=== PATIENT | male | born 1965 | race Caucasian/White ===

== ENCOUNTER 2021-11-20 19:02 | Emergency (ER) | payer MEDICARE, MEDICAID, SELFPAY ==
[2021-11-20 19:05] VITALS: BP 153/85; PULSE 93; RESP 18; TEMP 36.6; O2SAT 93; BMI 31.4
[2021-11-20] MEDS: MethylPREDNISolone 125 MG/2 ML Vial IV (19:16)
[2021-11-20] MEDS: Famotidine 200 MG/20 ML MDV 20 MG in 0.9% Normal Saline (Pres. free 8 ML 300 MG IV (19:40)
[2021-11-20 19:48] VITALS: RESP 16; O2SAT 96
--- NOTE | 2021-11-20 20:45 | EDS_ITS ---
HPI History of Present Illness Chief Complaint: Allergic Reaction Informant: patient Onset/Context/Timing Onset: Today Narrative Narrative: Patient presents via EMS secondary to allergic reaction. He resides at a fpc in [place]. He ate dinner at 5 PM. Shortly after he started noticing his tongue getting thick. He has an allergy to pineapple and when he checked with the kitchen there was mixed fruit that he was given including pineapple. Patient was given 25 mg of Benadryl IV with squad. Patient reports that his tongue still feels thick. He denies rash or itching. [facility] Medical History (Updated 11/20/21 @ 20:[address] Sarah Wright MD) Anxiety Bipolar disorder Chorea Convulsions Depression Diabetes High cholesterol Hx of gastroesophageal reflux (GERD) Hypertension Impulse disorder Sleep apnea Urinary retention Volvulus Home Medications Vit D3/Folic Acid/B2/B6/B12 [Folgard Tablet] 1 ea PO DAILY 07/30/13 [History Last Taken Unknown] amlodipine 10 mg PO DAILY 07/30/13 [History Last Taken Unknown] aspirin 81 mg PO DAILY@0800 07/30/13 [History Last Taken Unknown] atenolol 25 mg PO DAILY 07/30/13 [History Last Taken Unknown] benzonatate 100 mg PO TID PRN PRN 07/30/13 [History Last Taken Unknown] clonazepam [Klonopin] 1 mg PO TID 07/30/13 [History Last Taken Unknown] diphenhydramine HCl [Benadryl] 25 mg PO Q6H PRN PRN 07/30/13 [History Last Taken Unknown] enalapril maleate [Vasotec] 20 mg PO DAILY 07/30/13 [History Last Taken Unknown] fluoxetine 40 mg PO DAILY 07/30/13 [History Last Taken Unknown] fluticasone propionate 2 spray NASAL DAILY 07/30/13 [History Last Taken Unknown] furosemide 20 mg PO DAILY 07/30/13 [History Last Taken Unknown] gabapentin 800 mg PO TIDCM 07/30/13 [History Last Taken Unknown] levetiracetam [Keppra] 1,000 mg PO DAILY 07/30/13 [History Last Taken Unknown] levetiracetam [Keppra] 1,000 mg PO DAILY 07/30/13 [History Last Taken Unknown] loperamide 1 mg PO Q2H PRN PRN 07/30/13 [History Last Taken Unknown] magnesium hydroxide 30 ml PO DAILY PRN PRN 07/30/13 [History Last Taken Unknown] metformin 500 mg PO TIDCM 07/30/13 [History Last Taken Unknown] nitroglycerin 0.4 mg SUBLINGUAL Q5M PRN 07/30/13 [History Last Taken Unknown] omeprazole 20 mg PO DAILY 07/30/13 [History Last Taken Unknown] potassium chloride [Klor-Con 10] 10 meq PO BID 07/30/13 [History Last Taken Unknown] pravastatin 20 mg PO QHS 07/30/13 [History Last Taken Unknown] primidone 250 mg PO TID 07/30/13 [History Last Taken Unknown] risperidone [Risperdal] 0.25 mg PO BID 07/30/13 [History Last Taken Unknown] ropinirole [Requip] 5 mg PO TID 07/30/13 [History Last Taken Unknown] tamsulosin 0.4 mg PO BID 07/30/13 [History Last Taken Unknown] trihexyphenidyl 5 mg PO TID 07/30/13 [History Last Taken Unknown] diphenhydramine HCl [Benadryl] 50 mg PO BID #20 cap 11/20/21 [Rx Last Taken Unknown] famotidine [Pepcid] 40 mg PO DAILY #5 tab 11/20/21 [Rx Last Taken Unknown] prednisone 40 mg PO DAILY #6 tab 11/20/21 [Rx Last Taken Unknown] Allergy/AdvReac Type Severity Reaction Status Date / Time amoxicillin [From Augmentin] Allergy PT UNSURE Verified 11/20/21 19:19 OF REACTION clavulanic acid Allergy PT UNSURE Verified 11/20/21 19:19 [From Augmentin] OF REACTION phenytoin Allergy PT UNSURE Verified 11/20/21 19:19 OF REACTION pineapple Allergy Swelling Verified 11/20/21 19:19 primidone Allergy PT UNSURE Verified 11/20/21 19:19 OF REACTION adhesive tape AdvReac Itching Verified 11/20/21 19:19 Social History Smoking Status: Never smoker ROS ROS ED Constitutional Constitutional ED: Denies chills or fever(s) Eyes Eyes: Denies blurry vision or change in vision ENT ENT ED: Reports other Details: Tongue swelling ; Denies ear pain Cardiovascular Cardiovascular: Denies chest pain or palpitations Respiratory/Chest Respiratory/Chest: Denies cough or dyspnea Gastrointestinal Gastrointestinal: Denies abdominal pain or vomiting Musculoskeletal Musculoskeletal: Denies back pain or neck pain Integumentary Denies rash Neurologic Neurologic: Denies headache(s) Allergic/Immunologic Allergic/Immunologic ED: Reports tongue swelling; Denies urticaria EXAM Physical Exam Const Vital Signs: 11/20/21 19:05 11/20/21 19:48 Temperature 97.8 F Temperature Source Temporal Pulse Rate 93 Respiratory Rate 18 16 Blood Pressure 153/85 H Blood Pressure Mean 107 Pulse Ox 93 96 Oxygen Delivery Method Room Air Room Air Positive well nourished and well developed General Appearance ED: well developed HEENT Reports moist mucous membranes HEENT Narrative: No visible tongue edema noted on exam. Posterior pharynx exam is unremarkable. Eyes PERRL and EOMs intact bilaterally Neck supple Chest Wall inspection of chest normal and palpation of chest normal Resp normal respiratory effort and clear to auscultation bilaterally Cardio regular rate and regular rhythm GI non-tender GI Narrative: Colostomy in place. Palpation: soft Extremity normal to inspection Neuro oriented x3 Sensorium / Orientation: alert Psych mental status grossly normal MDM MDM MDM Narrative Medical decision making narrative: Patient already received Benadryl with EMS. 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 Treatment and Re-Evaluation Narrative: Patient presents here 2 hours after initial onset of symptoms. He is observed for an additional 2 hours. At this time he is resting comfortably and easily awakens. He reports significant improvement and feels that his tongue is back to baseline. We were [facility] of the [facility]'s medical problems from the [facility] but not his current medication list. I will send paper copies of prescriptions for Benadryl, prednisone, Pepcid back to the facility. They will need to double check with the patient's medication list to ensure he is not already on these medications. Discharge Plan Triage Chief Complaint: Allergic Reaction ED Provider: Sarah Wright Dx/Rx/DC Orders Clinical Impression: Allergic reaction Instructions: ED General Allergic Reactions Prescriptions: New prednisone 20 mg tablet 40 mg PO DAILY Qty: 6 RF: 0 diphenhydramine HCl [Benadryl] 25 mg capsule 50 mg PO BID Qty: 20 RF: 0 famotidine [Pepcid] 40 mg tablet 40 mg PO DAILY Qty: 5 RF: 0 No Action clonazepam [Klonopin] 1 MG tablet 1 mg PO TID RF: 0 atenolol 25 MG tablet 25 mg PO DAILY RF: 0 loperamide 1 MG/5 ML liquid 1 mg PO Q2H PRN PRN (Reason: Diarrhea) RF: 0 tamsulosin 0.4 MG capsule 0.4 mg PO BID RF: 0 amlodipine 10 MG tablet 10 mg PO DAILY RF: 0 diphenhydramine HCl [Banophen] 25 MG capsule 25 mg PO Q6H PRN PRN (Reason: itching) RF: 0 furosemide 20 MG tablet 20 mg PO DAILY RF: 0 fluticasone propionate 1 SPRAY spray,suspension 2 spray NASAL DAILY RF: 0 levetiracetam [Keppra] 1,000 MG tablet 1,000 mg PO DAILY RF: 0 metformin 500 MG tablet 500 mg PO TIDCM RF: 0 magnesium hydroxide 30 ML suspension 30 ml PO DAILY PRN PRN (Reason: constipation) RF: 0 aspirin 81 MG tablet 81 mg PO DAILY@0800 RF: 0 primidone 250 MG tablet 250 mg PO TID RF: 0 gabapentin 800 MG tablet 800 mg PO TIDCM RF: 0 nitroglycerin 0.4 MG tablet 0.4 mg sublingual Q5M PRN (Reason: Chest Pain) RF: 0 levetiracetam [Keppra] 1,000 MG tablet 1,000 mg PO DAILY RF: 0 Vit D3/Folic Acid/B2/B6/B12 [Folgard Tablet] 1 EACH tablet 1 ea PO DAILY RF: 0 risperidone [Risperdal] 0.25 MG tablet 0.25 mg PO BID RF: 0 potassium chloride [Klor-Con 10] 10 MEQ tablet extended release 10 meq PO BID RF: 0 omeprazole 20 MG capsule 20 mg PO DAILY RF: 0 pravastatin 20 MG tablet 20 mg PO QHS RF: 0 ropinirole [Requip] 5 MG tablet 5 mg PO TID RF: 0 fluoxetine 20 MG capsule 40 mg PO DAILY RF: 0 enalapril maleate [Vasotec] 20 MG tablet 20 mg PO DAILY RF: 0 benzonatate 100 MG capsule 100 mg PO TID PRN PRN (Reason: Cough) RF: 0 trihexyphenidyl 5 MG tablet 5 mg PO TID RF: 0 Referrals: Judd Burt MD [NON-STAFF] - 5-7 Days Disposition Disposition: Home, Self Care
[2021-11-20 20:56] VITALS: BP 123/99; PULSE 72; RESP 18; O2SAT 96
--- NOTE | 2021-11-20 21:01 | NURSING ---
CALLED PHYSICIANS AT 2100 ETA 15-20 MIN
--- NOTE | 2021-11-20 21:13 | NURSING ---
attempted to call report to [facility] nurse off unit, left name and number.
== END 2021-11-20 21:21 | disposition home or self-care (01) ==
PROVIDERS: Emergency Provider Emergency Medicine; Visit Provider Emergency Medicine
DX: T78.1XXA Other adverse food reactions, not elsewhere classified, initial encounter (principal); F31.9 Bipolar disorder, unspecified; E11.9 Type 2 diabetes mellitus without complications; I10 Essential (primary) hypertension; E78.00 Pure hypercholesterolemia, unspecified; K21.9 Gastro-esophageal reflux disease without esophagitis; Z79.899 Other long term (current) drug therapy; Z79.82 Long term (current) use of aspirin; F41.9 Anxiety disorder, unspecified; G47.30 Sleep apnea, unspecified; Y92.129 Unspecified place in nursing home as the place of occurrence of the external cause
CPT/HCPCS: 96374; 99285; A4216; J3490

== ENCOUNTER 2023-08-02 16:17 | Emergency (ER) | payer MEDICARE, MEDICAID, SELFPAY ==
[2023-08-02 16:19] VITALS: BP 109/87; PULSE 69; RESP 16; TEMP 36.4; O2SAT 98; BMI 24.6
--- NOTE | 2023-08-02 16:46 | ED.VIS.CHEST ---
HPI History of Present Illness Chief Complaint: Chest Pain Informant: patient Onset/Context/Timing Onset: Today and Hours (1) Activity at onset: sudden Timing: Continuous Quality: Positive for Pressure Location: Substernal Worsened By: Nothing Relieved By: Nothing Associated Symptoms: Positive for Lightheadedness; Negative for Nausea, Vomiting, Diaphoresis, Dyspnea, Cough, Fever, Acid Reflux or Palpitations Narrative Narrative: Patient presents with chest pain that began approximate 1 hour prior to arrival. Patient describes it as a pressure sensation. Patient states that over the substernal area. Patient states nothing makes it better nothing makes it worse. Patient admits to some lightheadedness. Patient denies any nausea or vomiting. Patient denies any diaphoresis or shortness of breath. Patient denies any fevers or cough. Patient denies any palpitations. Patient denies any radiation of the pain. [facility] Medical History Anxiety Bipolar disorder Chorea Convulsions Depression Diabetes High cholesterol Hx of gastroesophageal reflux (GERD) Hypertension Impulse disorder Sleep apnea Urinary retention Volvulus Home Medications Vit D3/Folic Acid/B2/B6/B12 [Folgard Tablet] 1 ea PO DAILY 07/30/13 [History Last Taken Unknown] amlodipine 10 mg tablet 10 mg PO DAILY 07/30/13 [History Last Taken Unknown] aspirin 81 mg tablet,delayed release 81 mg PO DAILY@0800 07/30/13 [History Last Taken Unknown] atenolol 25 mg tablet 25 mg PO DAILY 07/30/13 [History Last Taken Unknown] benzonatate 100 mg capsule 100 mg PO TID PRN PRN Cough 07/30/13 [History Last Taken Unknown] clonazepam 1 mg tablet (Klonopin) 1 mg PO TID 07/30/13 [History Last Taken Unknown] diphenhydramine HCl 25 mg capsule (Banophen) 25 mg PO Q6H PRN PRN itching 07/30/13 [History Last Taken Unknown] enalapril maleate 20 mg tablet (Vasotec) 20 mg PO DAILY 07/30/13 [History Last Taken Unknown] fluoxetine 20 mg capsule 40 mg PO DAILY 07/30/13 [History Last Taken Unknown] fluticasone propionate 50 mcg/actuation nasal spray,suspension 2 spray DAILY 07/30/13 [History Last Taken Unknown] furosemide 20 mg tablet 20 mg PO DAILY 07/30/13 [History Last Taken Unknown] gabapentin 800 mg tablet 800 mg PO TIDCM 07/30/13 [History Last Taken Unknown] levetiracetam 1,000 mg tablet (Keppra) 1,000 mg PO DAILY 07/30/13 [History Last Taken Unknown] levetiracetam 1,000 mg tablet (Keppra) 1,000 mg PO DAILY 07/30/13 [History Last Taken Unknown] loperamide 1 mg/5 mL oral liquid 1 mg PO Q2H PRN PRN Diarrhea 07/30/13 [History Last Taken Unknown] magnesium hydroxide 400 mg/5 mL oral suspension 30 ml PO DAILY PRN PRN constipation 07/30/13 [History Last Taken Unknown] metformin 500 mg tablet 500 mg PO TIDCM 07/30/13 [History Last Taken Unknown] nitroglycerin 0.4 mg sublingual tablet 0.4 mg sublingual Q5M PRN Chest Pain 07/30/13 [History Last Taken Unknown] omeprazole 20 mg capsule,delayed release 20 mg PO DAILY 07/30/13 [History Last Taken Unknown] potassium chloride 10 mEq tablet,extended release (Klor-Con) 10 meq PO BID 07/30/13 [History Last Taken Unknown] pravastatin 20 mg tablet 20 mg PO QHS 07/30/13 [History Last Taken Unknown] primidone 250 mg tablet 250 mg PO TID 07/30/13 [History Last Taken Unknown] risperidone 0.25 mg tablet (Risperdal) 0.25 mg PO BID 07/30/13 [History Last Taken Unknown] ropinirole 5 mg tablet (Requip) 5 mg PO TID 07/30/13 [History Last Taken Unknown] tamsulosin 0.4 mg capsule 0.4 mg PO BID 07/30/13 [History Last Taken Unknown] trihexyphenidyl 5 mg tablet 5 mg PO TID 07/30/13 [History Last Taken Unknown] diphenhydramine HCl 25 mg capsule (Benadryl) 50 mg (2 x 25 mg) PO BID #20 caps 11/20/21 [Rx Last Taken Unknown] famotidine 40 mg tablet (Pepcid) 40 mg PO DAILY #5 tabs 11/20/21 [Rx Last Taken Unknown] prednisone 20 mg tablet 40 mg (2 x 20 mg) PO DAILY #6 tabs 11/20/21 [Rx Last Taken Unknown] Allergy/AdvReac Type Severity Reaction Status Date / Time amoxicillin [From Augmentin] Allergy PT UNSURE Verified 08/02/23 16:19 OF REACTION clavulanic acid Allergy PT UNSURE Verified 08/02/23 16:19 [From Augmentin] OF REACTION phenytoin Allergy PT UNSURE Verified 08/02/23 16:19 OF REACTION pineapple Allergy Swelling Verified 08/02/23 16:19 primidone Allergy PT UNSURE Verified 08/02/23 16:19 OF REACTION adhesive tape AdvReac Itching Verified 08/02/23 16:19 Social History Smoking Status: Never smoker ROS ROS ED Constitutional Constitutional ED: Denies chills or fever(s) Eyes Eyes: Denies blurry vision or change in vision ENT ENT ED: Denies rhinorrhea or sore throat Cardiovascular Cardiovascular: Reports chest pain; Denies palpitations Respiratory/Chest Respiratory/Chest: Denies cough or dyspnea Gastrointestinal Gastrointestinal: Denies nausea or vomiting Genitourinary Genitourinary ED: Reports urinary frequency; Denies dysuria or hematuria Musculoskeletal Musculoskeletal: Denies back pain or neck pain Integumentary Denies abscess or rash Neurologic Neurologic: Denies headache(s) or weakness Allergic/Immunologic Allergic/Immunologic ED: Denies mouth swelling or urticaria EXAM Physical Exam Const Vital Signs: 08/02/23 16:19 08/02/23 16:23 08/02/23 17:20 Temperature 97.5 F L Temperature Source Temporal Pulse Rate 69 Respiratory Rate 16 Respiratory Effort Normal Blood Pressure 109/87 H Blood Pressure Mean 94 Pulse Ox 98 Oxygen Delivery Method Room Air Room Air 08/02/23 17:15 08/02/23 18:15 Temperature Temperature Source Pulse Rate 63 62 Respiratory Rate 17 14 Respiratory Effort Blood Pressure 103/72 108/76 Blood Pressure Mean 82 86 Pulse Ox Oxygen Delivery Method Positive well nourished and well developed General Appearance ED: well developed and NAD HEENT Reports moist mucous membranes Chest Wall palpation of chest normal Resp normal respiratory effort and clear to auscultation bilaterally Cardio regular rate and regular rhythm GI soft to palpation, non-tender and non-distended Neuro oriented x3, CN's II-XII intact bilaterally and no sensory deficits noted Sensorium / Orientation: awake and alert Psych mental status grossly normal Heart Score History: Slightly/Non-Suspicious ECG: Normal Age: >45 - <65 years Risk Factors: 1 or 2 Risk Factors Troponin: </= Normal Limit Score: 2 MDM MDM MDM Narrative Medical decision making narrative: Differential diagnosis includes cardiac dysrhythmia, cardiac ischemia, pneumonia, pneumothorax, electrolyte abnormality, musculoskeletal pain, and anxiety. EKG will be obtained to assess for cardiac dysrhythmia and cardiac ischemia. Chest x-ray will be obtained to assess for pneumonia and pneumothorax. CBC will be obtained to assess for leukocytosis and anemia. Basic metabolic profile will be obtained to assess for electrolyte abnormality and renal function. High-sensitivity troponin will be obtained to assess for cardiac ischemia. 2-hour repeat high-sensitivity troponin will be obtained to assess for ongoing cardiac ischemia. Patient has a Wells score of 0. I do not feel this is from a pulmonary embolism. Lab Data Attestation: I reviewed the patient's lab results. Lab results narrative: CBC was reviewed and was within normal limits. Basic metabolic profile was reviewed and was essentially within normal limits. High-sensitivity troponin was reviewed and was normal at 5. 2-hour repeat high-sensitivity troponin was reviewed and was normal at 4. Labs: Laboratory Results - last 24 hr 08/02/23 08/02/23 16:28 19:12 WBC 5.3 RBC 4.66 Hgb 13.8 Hct 41.8 MCV 89.7 MCH 29.6 MCHC 33.0 RDW Std Deviation 39.5 RDW Coeff of [place] 12.1 Plt Count 183 MPV 10.3 Immature Gran % (Auto) 0.200 Neut % (Auto) 62.8 Lymph % (Auto) 28.9 [place] % (Auto) 7.9 Eos % (Auto) 0.0 Baso % (Auto) 0.2 Absolute Neuts (auto) 3.3 Absolute Lymphs (auto) 1.54 Nucleated RBC % 0 Sodium 142 Potassium 3.9 Chloride 108 H Carbon Dioxide 32.0 Anion Gap 2 L BUN 22 H Creatinine 0.83 Estim Creat Clear Calc 118.78 Est GFR (MDRD) Af Amer 124 Est GFR (MDRD) Non-Af 102 BUN/Creatinine Ratio 26.6 H Glucose 87 Calcium 9.4 Troponin I High Sens 5 4 Radiography Chest X-Ray - ED: 1 View, Read by ED Physician, Read by Radiologist and No Acute Disease Diagnostic Testing: Clinical Impression(s) from Imaging Studies Chest X-Ray 08/02/23 17:38 IMPRESSION: Question tiny left pleural effusion versus pleural thickening. Otherwise no acute cardiopulmonary pathology Electronically Signed: Jonathan Reyes MD at 17:58 EST Reading Location ID and State: [address] [place] [address] Tel , Service support , Portable 1 view chest x-ray was obtained. On my independent interpretation, lung arauz show a questionable tiny left pleural effusion versus pleural thickening. There is normal cardiac silhouette. Bony thorax is normal. There is no acute process noted. Radiologist also interpreted the x-ray and agrees. EKG Initial EKG: Attestation: I personally reviewed and interpreted this EKG as follows: Interpretation: Sinus Rhythm (67) and No Acute Injury Pattern Comments: EKG was obtained. On my independent interpretation, it showed a normal sinus rhythm with a rate of 67. MI interval, QRS interval, and QTc intervals were all normal. [place] was borderline left axis deviation at -13. There are no acute ST or T wave changes. Prior EKG tracings: not available for review Treatment and Re-Evaluation :: Patient was given aspirin here. Patient is feeling better on reevaluation. Patient was advised of his findings. Patient has a HEART score of 2. Patient was advised that this is low risk for acute cardiac event. Patient was instructed to follow-up with his primary care physician in 5 to 7 days. Patient understood and was agreeable with the plan. All questions were answered. Discharge Plan Triage Chief Complaint: Chest Pain ED Provider: David Cazares Dx/Rx/DC Orders Clinical Impression: Chest pain of uncertain etiology, History of hypertension Instructions: ED Chest Pain, Uncertain Cause Prescriptions: No Action clonazepam [Klonopin] 1 MG tablet 1 mg PO TID atenolol 25 MG tablet 25 mg PO DAILY loperamide 1 MG/5 ML liquid 1 mg PO Q2H PRN PRN (Reason: Diarrhea) tamsulosin 0.4 MG capsule 0.4 mg PO BID amlodipine 10 MG tablet 10 mg PO DAILY diphenhydramine HCl [Banophen] 25 MG capsule 25 mg PO Q6H PRN PRN (Reason: itching) furosemide 20 MG tablet 20 mg PO DAILY fluticasone propionate 1 SPRAY spray,suspension 2 spray NASAL DAILY levetiracetam [Keppra] 1,000 MG tablet 1,000 mg PO DAILY metformin 500 MG tablet 500 mg PO TIDCM magnesium hydroxide 30 ML suspension 30 ml PO DAILY PRN PRN (Reason: constipation) aspirin 81 MG tablet 81 mg PO DAILY@0800 primidone 250 MG tablet 250 mg PO TID gabapentin 800 MG tablet 800 mg PO TIDCM nitroglycerin 0.4 MG tablet 0.4 mg sublingual Q5M PRN (Reason: Chest Pain) levetiracetam [Keppra] 1,000 MG tablet 1,000 mg PO DAILY Vit D3/Folic Acid/B2/B6/B12 [Folgard Tablet] 1 EACH tablet 1 ea PO DAILY risperidone [Risperdal] 0.25 MG tablet 0.25 mg PO BID potassium chloride [Klor-Con 10] 10 MEQ tablet extended release 10 meq PO BID omeprazole 20 MG capsule 20 mg PO DAILY pravastatin 20 MG tablet 20 mg PO QHS ropinirole [Requip] 5 MG tablet 5 mg PO TID fluoxetine 20 MG capsule 40 mg PO DAILY enalapril maleate [Vasotec] 20 MG tablet 20 mg PO DAILY benzonatate 100 MG capsule 100 mg PO TID PRN PRN (Reason: Cough) trihexyphenidyl 5 MG tablet 5 mg PO TID prednisone 20 mg tablet 40 mg PO DAILY Qty: 6 0RF diphenhydramine HCl [Benadryl] 25 mg capsule 50 mg PO BID Qty: 20 0RF famotidine [Pepcid] 40 mg tablet 40 mg PO DAILY Qty: 5 0RF Primary Care Provider: Care Physician,No Primary Referrals: Care Physician,No Primary [Primary Care Provider] - Doctor,Your [Non-Staff] - 5-7 Days Disposition Disposition: Home, Self Care
[2023-08-02 17:15] VITALS: BP 103/72; PULSE 63; RESP 17
--- NOTE | 2023-08-02 17:20 | EKG12_ITS ---
Test Reason : Blood Pressure : / mmHG Vent. Rate : 067 BPM Atrial Rate : 067 BPM P-R Int : 192 ms QRS Dur : 094 ms QT Int : 438 ms P-R-T Axes : 008 -13 -01 degrees QTc Int : 462 ms Normal sinus rhythm Minimal voltage criteria for LVH, may be normal variant ( R in aVL ) Borderline ECG Confirmed by Bradley Amador [id number]), state editor BETO KELLEY ([id number]) on 08/03/2023 9:48:47 AM Referred By: Confirmed By:Bradley Amador
[2023-08-02] MEDS: Aspirin 81 MG TAB.CHEW 324 MG PO (17:24)
--- NOTE | 2023-08-02 17:38 | RAD_ITS ---
STUDY: X-RAY CHEST REASON FOR EXAM: Male, 57 years old. chest pain TECHNIQUE: AP portable COMPARISON: None. FINDINGS: There is less than optimal inspiratory effort however the lungs are clear.. There is blunted left costophrenic sulcus possibly representing tiny pleural effusion or pleural thickening. Normal size heart. Normal mediastinum and neto. Normal visualized pulmonary arteries. Normal visualized aortic arch and descending thoracic aorta. Dorsal spine and shoulders demonstrate degenerative change.. Normal visualized ribs, and clavicles. Nonspecific bowel distention noted within the upper abdomen. RAD/Chest 1 View (Portable) IMPRESSION: Question tiny left pleural effusion versus pleural thickening. Otherwise no acute cardiopulmonary pathology Electronically Signed: Jonathan Reyes MD at 17:58 EST ,
[2023-08-02 17:41] LABS: Absolute Lymphocyte Count 1.54 X10^3/uL (0.83-4.51); Absolute Neutrophil Count 3.3 X10^3/uL (2.0-7.7); Basophil# 0.01 X10^3/uL; Basophil% 0.2 % (0-1); Hematocrit 41.8 % (40-54); Hemoglobin 13.8 g/dL (13.0-16.5); Lymphocyte # 1.54 X10^3/ul (0.83-4.51); Lymphocyte % 28.9 % (19-41); Mean Corpuscular Hgb 29.6 pg (27.0-32.0); Mean Corpuscular Volume 89.7 fL (80-94); Mean Platelet Vol. 10.3 fl (6.2-12.0); Monocyte# 0.42 X10^3/uL; Monocyte% 7.9 % (0-10); NRBC Flagged by Analyzer 0 % (0-5); Neutrophil # 3.34 X10^3/uL (2.7-7.7); Neutrophil % 62.8 % (47-70); Platelet Count 183 K/mm3 (150-450); RBC Distribution Width CV 12.1 % (11.6-14.6); RBC Distribution Width SD 39.5 fl (35.1-43.9); Red Blood Count 4.66 M/mm3 (4.6-6.2); White Blood Count 5.3 K/mm3 (4.4-11.0)
[2023-08-02 17:54] LABS: Anion Gap 2 (5-15); BUN 22 mg/dL (7-18); BUN/Creat Ratio 26.6 RATIO (10-20); Calcium,Total 9.4 mg/dL (8.5-10.1); Chloride 108 mmol/L (98-107); Creatinine, Serum 0.83 mg/dL (0.70-1.30); EST Glomerular Filtration Rate 102 mL/min (>60); Est Glom Filt Rate - Afr Amer 124 mL/min (>60); Estimated Creatinine Clearance 118.78 ml/min; Glucose 87 mg/dL (74-106); Potassium 3.9 mmol/L (3.5-5.1); Sodium Level 142 mmol/L (136-145); Troponin-I HS (w/2H Reflex) 5 pg/mL (3.0-78.0)
[2023-08-02 18:15] VITALS: BP 108/76; PULSE 62; RESP 14
[2023-08-02 19:24] LABS: Reflex Troponin-HS? (from REC) Y
[2023-08-02 19:56] LABS: Troponin-I HS 4 pg/mL (3.0-78.0)
[2023-08-02 21:00] VITALS: BP 106/77; PULSE 57; RESP 11; TEMP 36.1; O2SAT 93
--- NOTE | 2023-08-02 21:10 | ED.RN ---
This RN called the [facility] to disclose the patient is going to be transported back to them with no known cause of the chest pain.
[2023-08-02 21:27] VITALS: BP 106/77; PULSE 57; RESP 11; TEMP 36.1; O2SAT 93
== END 2023-08-02 21:28 | disposition home or self-care (01) ==
PROVIDERS: Emergency Provider Emergency Medicine; Visit Provider Emergency Medicine
DX: R07.9 Chest pain, unspecified (principal); F31.9 Bipolar disorder, unspecified; E11.9 Type 2 diabetes mellitus without complications; I10 Essential (primary) hypertension; K21.9 Gastro-esophageal reflux disease without esophagitis; E78.00 Pure hypercholesterolemia, unspecified; F41.9 Anxiety disorder, unspecified
CPT/HCPCS: 71045; 80048; 84484; 85025; 93005; 99284; A4216

== ENCOUNTER 2024-11-12 19:11 | Emergency (ER) | payer MEDICARE, MEDICAID, SELFPAY ==
[2024-11-12] VITALS (7 sets, daily range): BP systolic 108–120; BP diastolic 76–90; PULSE 66–87; RESP 14–18; TEMP 36.9; O2SAT 66–97; BMI 25.2
--- NOTE | 2024-11-12 19:34 | EKG12_ITS ---
Test Reason : CP Blood Pressure : */* mmHG Vent. Rate : 86 BPM Atrial Rate : 86 BPM P-R Int : 180 ms QRS Dur : 86 ms QT Int : 344 ms P-R-T Axes : 27 -7 5 degrees QTcB Int : 411 ms Normal sinus rhythm Inferior infarct , age undetermined Abnormal ECG Confirmed by ALISON CINTRON ([id number]), design editor BETO KELLEY ([id number]) on 11/17/2024 7:27:07 AM Referred By: Peter Pritchett Confirmed By: ALISON CINTRON
--- NOTE | 2024-11-12 19:45 | RAD_ITS ---
PROCEDURE: CHEST 1 VIEW (PORTABLE) 11/12/2024 REASON FOR EXAM: SHARP CENTRAL CHEST PAIN TECHNIQUE: Frontal view of the chest. COMPARISON: None FINDINGS: Hardware: None Heart: The heart size is normal. Lungs: The lungs are clear. Bones: Degenerative changes are identified within the thoracic spine. Other: RAD/Chest 1 View (Portable) IMPRESSION: No Acute Findings. Reading Location: [facility]
[2024-11-12 19:46] LABS: Absolute Lymphocyte Count 1.81 X10^3/uL (0.83-4.51); Absolute Neutrophil Count 2.1 X10^3/uL (2.0-7.7); Basophil# 0.02 X10^3/uL; Basophil% 0.5 % (0-1); Hematocrit 44.6 % (40-54); Hemoglobin 15.1 g/dL (13.0-16.5); Lymphocyte # 1.81 X10^3/ul (0.83-4.51); Lymphocyte % 42.4 % (19-41); Mean Corp Hgb Conc 33.9 g/dL (32-36); Mean Corpuscular Hgb 30.2 pg (27.0-32.0); Mean Corpuscular Volume 89.2 fL (80-94); Mean Platelet Vol. 9.6 fl (6.2-12.0); Monocyte# 0.37 X10^3/uL; Monocyte% 8.7 % (0-10); NRBC Flagged by Analyzer 0 % (0-5); Neutrophil # 2.06 X10^3/uL (2.7-7.7); Neutrophil % 48.2 % (47-70); Platelet Count 233 K/mm3 (150-450); RBC Distribution Width SD 39.1 fl (35.1-43.9); White Blood Count 4.3 K/mm3 (4.4-11.0)
[2024-11-12 20:14] LABS: Troponin T High Sensitivity 7 ng/L (<=22)
[2024-11-12 20:17] LABS: ALB/GLOB Ratio 1.1 RATIO (0.9-2.4); AST(SGOT) 24 U/L (<=37); Alanine Aminotransfer ALT/SGPT 14 U/L (<=46); Alkaline Phosphatase 180 U/L (40-129); Anion Gap 9 (5-15); BUN 16 mg/dL (4-19); BUN/Creat Ratio 21.7 RATIO (10-20); Calcium,Total 8.9 mg/dL (7.6-11.0); Carbon Dioxide 29.6 mmol/L (21.0-32.0); Chloride 102 mmol/L (98-108); Creatinine, Serum 0.76 mg/dL (0.70-1.20); EST Glomerular Filtration Rate 105 (>60); Estimated Creatinine Clearance 128.17 ml/min (50-250); Globulin 3.7 g/dL (2.2-4.2); Glucose 129 mg/dL (70-99); Potassium 3.5 mmol/L (3.3-5.1); Protein, Total 7.7 g/dL (5.9-8.4); Sodium Level 140 mmol/L (133-145); Total Bilirubin 0.28 mg/dL (0.00-1.30)
--- NOTE | 2024-11-12 20:26 | ED.RN ---
Pt guardian Mikaela Rubalcava called and obtained consent over phone by this RN. Witness - Frances Ruelas RN
[2024-11-12 21:50] LABS: Troponin T High Sens 2 HR 9 ng/L (<=22)
--- NOTE | 2024-11-12 22:39 | EX.ED.DYSGE1 ---
HPI History of Present Illness Chief Complaint: Chest Pain Detail of Chief Complaint: Patient had a seizure. Sent in because of central chest pain Informant: patient Onset/Context/Timing Onset: Today and Hours Context: Sudden Onset Timing: Continuous Quality: Sharp Location: Central Current Severity: Mild Maximum Severity: Moderate Worsened by: Nothing Relieved by: Nothing Associated Symptoms Associated Symptoms: Nothing Narrative Narrative: Patient is a 58-year-old male. He resides at a nursing facility. He has history of seizure disorder, hypertension, GERD, dyslipidemia, on apixaban. He is not a good informant due to cognitive impairment. He admits to central chest pain. Denies shortness of breath, nausea vomiting. He denied cold sweat. He states he cannot remember everything. He does admit to stomach problems. He believes he has GERD. History is limited. Prior similar symptoms: No Recent Illness/Hospitalization: No PFSH PFS Medical History Epilepsy Impulse disorder Depression Bipolar disorder Diabetes Volvulus Urinary retention Sleep apnea Convulsions Chorea Hypertension Anxiety High cholesterol Hx of gastroesophageal reflux (GERD) Home Medications ?Medication ?Instructions ?Recorded ?Last Taken ?Type Vit D3/Folic Acid/B2/B6/B12 1 ea PO DAILY 07/30/13 Unknown History [Folgard Tablet] amlodipine 10 mg tablet 10 mg PO DAILY 07/30/13 Unknown History aspirin 81 mg tablet,delayed 81 mg PO DAILY@0800 07/30/13 Unknown History release atenolol 25 mg tablet 25 mg PO DAILY 07/30/13 Unknown History benzonatate 100 mg capsule 100 mg PO TID PRN PRN Cough 07/30/13 Unknown History clonazepam 1 mg tablet (Klonopin) 1 mg PO TID 07/30/13 Unknown History diphenhydramine HCl 25 mg capsule 25 mg PO Q6H PRN PRN itching 07/30/13 Unknown History (Banophen) enalapril maleate 20 mg tablet 20 mg PO DAILY 07/30/13 Unknown History (Vasotec) fluoxetine 20 mg capsule 40 mg PO DAILY 07/30/13 Unknown History fluticasone propionate 50 2 spray DAILY 07/30/13 Unknown History mcg/actuation nasal spray,suspension furosemide 20 mg tablet 20 mg PO DAILY 07/30/13 Unknown History gabapentin 800 mg tablet 800 mg PO TIDCM 07/30/13 Unknown History levetiracetam 1,000 mg tablet 1,000 mg PO DAILY 07/30/13 Unknown History (Keppra) levetiracetam 1,000 mg tablet 1,000 mg PO DAILY 07/30/13 Unknown History (Keppra) loperamide 1 mg/5 mL oral liquid 1 mg PO Q2H PRN PRN Diarrhea 07/30/13 Unknown History magnesium hydroxide 400 mg/5 mL 30 ml PO DAILY PRN PRN constipation 07/30/13 Unknown History oral suspension metformin 500 mg tablet 500 mg PO TIDCM 07/30/13 Unknown History nitroglycerin 0.4 mg sublingual 0.4 mg sublingual Q5M PRN Chest 07/30/13 Unknown History tablet Pain omeprazole 20 mg capsule,delayed 20 mg PO DAILY 07/30/13 Unknown History release potassium chloride 10 mEq 10 meq PO BID 07/30/13 Unknown History tablet,extended release (Klor-Con) pravastatin 20 mg tablet 20 mg PO QHS 07/30/13 Unknown History primidone 250 mg tablet 250 mg PO TID 07/30/13 Unknown History risperidone 0.25 mg tablet 0.25 mg PO BID 07/30/13 Unknown History (Risperdal) ropinirole 5 mg tablet (Requip) 5 mg PO TID 07/30/13 Unknown History tamsulosin 0.4 mg capsule 0.4 mg PO BID 07/30/13 Unknown History trihexyphenidyl 5 mg tablet 5 mg PO TID 07/30/13 Unknown History diphenhydramine HCl 25 mg capsule 50 mg (2 x 25 mg) PO BID #20 caps 11/20/21 Unknown Rx (Benadryl) famotidine 40 mg tablet (Pepcid) 40 mg PO DAILY #5 tabs 11/20/21 Unknown Rx prednisone 20 mg tablet 40 mg (2 x 20 mg) PO DAILY #6 tabs 11/20/21 Unknown Rx apixaban 5 mg tablet (Eliquis) 2.5 mg PO BID 11/12/24 Unknown History benztropine 1 mg tablet 1 mg PO BID 11/12/24 Unknown History cholecalciferol (vitamin D3) 25 1,000 unit PO BID 11/12/24 Unknown History mcg (1,000 unit) tablet clonazepam 0.5 mg tablet PO 11/12/24 Unknown History furosemide 40 mg tablet 40 mg PO DAILY 11/12/24 Unknown History venlafaxine 37.5 mg tablet 37.5 mg PO QHS 11/12/24 Unknown History venlafaxine 75 mg capsule,extended 75 mg PO QHS 11/12/24 Unknown History release 24 hr Allergy/AdvReac Type Severity Reaction Status Date / Time amoxicillin (From Augmentin) Allergy PT UNSURE Verified 11/12/24 19:13 OF REACTION clavulanic acid (From Allergy PT UNSURE Verified 11/12/24 19:13 Augmentin) OF REACTION phenytoin Allergy PT UNSURE Verified 11/12/24 19:13 OF REACTION pineapple Allergy Swelling Verified 11/12/24 19:13 primidone Allergy PT UNSURE Verified 11/12/24 19:13 OF REACTION adhesive tape AdvReac Itching Verified 11/12/24 19:13 Social History Smoking Status: Former smoker ROS ROS ED Review of Systems ROS Unobtainable: due to mental status and other Details: Please read HPI narrative. As previously documented history of present illness and review of systems very limited EXAM Physical Exam Const Vital Signs: 11/12/24 19:13 11/12/24 19:13 11/12/24 19:21 Temperature 98.5 F 98.5 F Temperature Source Oral Oral Pulse Rate 87 86 Respiratory Rate 18 18 Respiratory Effort Normal Blood Pressure 117/84 H 120/83 H Blood Pressure Mean 95 95 Pulse Ox 97 95 Oxygen Delivery Method Room Air Room Air 11/12/24 20:21 11/12/24 21:00 11/12/24 22:00 Temperature 98.5 F 98.5 F Temperature Source Oral Oral Pulse Rate 81 74 71 Respiratory Rate 16 15 16 Respiratory Effort Blood Pressure 117/84 H 114/90 H 108/81 H Blood Pressure Mean 95 98 90 Pulse Ox 93 94 94 Oxygen Delivery Method Room Air Room Air Room Air Positive well nourished, well developed and unkempt General Appearance ED: unkempt, well developed, NAD and pallor; Negative for cyanotic or diaphoretic HEENT Reports moist mucous membranes HEENT Narrative: Head is atraumatic normocephalic. Ears normal. Nares patent. Eyes PERRL and EOMs intact bilaterally General Eye ED: Negative for pale conjunctiva or scleral icterus Neck no lymphadenopathy, No supple and no JVD Chest Wall inspection of chest normal and palpation of chest normal Resp normal respiratory effort and clear to auscultation bilaterally Cardio regular rate, regular rhythm, S1 normal heart sound, S2 normal heart sound and no murmurs GI normal to inspection, nondistended, normoactive bowel sounds and non-distended; Negative for non-tender, hepatosplenomegaly or no masses Palpation: soft and tender epigastric; Negative for guarding, splenomegaly, mass or rebound tenderness present Back/Spine no CVA tenderness Extremity General Extremety ED: Yes edema General Extremity: edema Neuro CN's II-XII intact bilaterally Neuro Narrative: Limited range of motion lower extremity exam specially. Psych Appearance: unkempt Skin no wounds and skin turgor normal General Skin Exam: pallor; Negative for jaundice MDM MDM MDM Narrative Medical decision making narrative: Patient with known seizure disorder. Not unusual patient have seizures. He is on Keppra. Patient was sent in for chest pain. Will do workup to determine if this is cardiac versus noncardiac. Workup included EKG, appropriate blood work, chest x-ray History & Record Review Discussion w/independent historian: EMS personnel (Reviewed EMS records and [facility] records.) Lab Data Attestation: I reviewed the patient's lab results. Lab results narrative: Patient has mild neutropenia. He has a lymphocytosis. Renal function is normal. Glucose elevated 129 with a normal CO2 anion gap. 1st and 2nd troponin are both normal with a delta of 2. Labs: Laboratory Results - last 24 hr 11/12/24 11/12/24 19:17 21:26 WBC 4.3 L RBC 5.00 Hgb 15.1 Hct 44.6 MCV 89.2 MCH 30.2 MCHC 33.9 RDW Std Deviation 39.1 RDW Coeff of Katelin 12.0 Plt Count 233 MPV 9.6 Immature Gran % (Auto) 0.200 Neut % (Auto) 48.2 Lymph % (Auto) 42.4 H Charles % (Auto) 8.7 Eos % (Auto) 0.0 Baso % (Auto) 0.5 Absolute Neuts (auto) 2.1 Absolute Lymphs (auto) 1.81 Nucleated RBC % 0 Sodium 140 Potassium 3.5 Chloride 102 Carbon Dioxide 29.6 Anion Gap 9 BUN 16 Creatinine 0.76 Estim Creat Clear Calc 128.17 Est GFR (MDRD) Non-Af 105 BUN/Creatinine Ratio 21.7 H Glucose 129 H Calcium 8.9 Total Bilirubin 0.28 AST 24 ALT 14 Alkaline Phosphatase 180 H Troponin T High Sens 7 Troponin T Hi Sens 2 Hr 9 Total Protein 7.7 Albumin 4.0 Globulin 3.7 Albumin/Globulin Ratio 1.1 Radiography Chest X-Ray - ED: 1 View and Read by ED Physician (There is no acute findings. There is chronic findings noted. Cardiac silhouette size normal. Osseous structures are unremarkable. There is no widening of the mediastinum.) Diagnostic Testing: Clinical Impression(s) from Imaging Studies Chest X-Ray 11/12/24 19:45 IMPRESSION: No Acute Findings. [facility] T[facility] Chief Complaint: Chest Pain ED Provider: Peter Pritchett Dx/Rx/DC Orders Clinical Impression: Central chest pain, Seizure, Anticoagulant long-term use, History of hypertension Instructions: ED Chest Pain, Noncardiac, ED Chest Pain, Uncertain Cause Prescriptions: No Action clonazepam [Klonopin] 1 MG tablet 1 mg PO TID atenolol 25 MG tablet 25 mg PO DAILY loperamide 1 MG/5 ML liquid 1 mg PO Q2H PRN PRN (Reason: Diarrhea) tamsulosin 0.4 MG capsule 0.4 mg PO BID amlodipine 10 MG tablet 10 mg PO DAILY diphenhydramine HCl [Banophen] 25 MG capsule 25 mg PO Q6H PRN PRN (Reason: itching) furosemide 20 MG tablet 20 mg PO DAILY fluticasone propionate 1 SPRAY spray,suspension 2 spray NASAL DAILY levetiracetam [Keppra] 1,000 MG tablet 1,000 mg PO DAILY metformin 500 MG tablet 500 mg PO TIDCM magnesium hydroxide 30 ML suspension 30 ml PO DAILY PRN PRN (Reason: constipation) aspirin 81 MG tablet 81 mg PO DAILY@0800 primidone 250 MG tablet 250 mg PO TID gabapentin 800 MG tablet 800 mg PO TIDCM nitroglycerin 0.4 MG tablet 0.4 mg sublingual Q5M PRN (Reason: Chest Pain) levetiracetam [Keppra] 1,000 MG tablet 1,000 mg PO DAILY Vit D3/Folic Acid/B2/B6/B12 [Folgard Tablet] 1 EACH tablet 1 ea PO DAILY risperidone [Risperdal] 0.25 MG tablet 0.25 mg PO BID potassium chloride [Klor-Con 10] 10 MEQ tablet extended release 10 meq PO BID omeprazole 20 MG capsule 20 mg PO DAILY pravastatin 20 MG tablet 20 mg PO QHS ropinirole [Requip] 5 MG tablet 5 mg PO TID fluoxetine 20 MG capsule 40 mg PO DAILY enalapril maleate [Vasotec] 20 MG tablet 20 mg PO DAILY benzonatate 100 MG capsule 100 mg PO TID PRN PRN (Reason: Cough) trihexyphenidyl 5 MG tablet 5 mg PO TID prednisone 20 mg tablet 40 mg PO DAILY Qty: 6 0RF diphenhydramine HCl [Benadryl] 25 mg capsule 50 mg PO BID Qty: 20 0RF famotidine [Pepcid] 40 mg tablet 40 mg PO DAILY Qty: 5 0RF furosemide 40 mg tablet 40 mg PO DAILY clonazepam 0.5 mg tablet PO venlafaxine 37.5 mg tablet 37.5 mg PO QHS benztropine 1 mg tablet 1 mg PO BID cholecalciferol (vitamin D3) 25 mcg (1,000 unit) tablet 1,000 unit PO BID Eliquis 5 mg tablet 2.5 mg PO BID venlafaxine 75 mg capsule,extended release 24hr 75 mg PO QHS Primary Care Provider: Care Physician,No Primary Referrals: Care Physician,No Primary [Primary Care Provider] - Activity Restrictions/Additional Instructions: Follow-up with [facility] doctor as needed. Print Language: Faroese Disposition Disposition: Home, Self Care
[2024-11-12 23:26] LABS: Bedside Glucose 110 mg/dL (74-106)
== END 2024-11-13 02:12 | disposition home or self-care (01) ==
PROVIDERS: Emergency Provider Emergency Medicine; Referring Provider Emergency Medicine; Visit Provider Emergency Medicine
DX: R07.89 Other chest pain (principal); F31.9 Bipolar disorder, unspecified; G40.909 Epilepsy, unspecified, not intractable, without status epilepticus; E11.9 Type 2 diabetes mellitus without complications; I10 Essential (primary) hypertension; Z87.891 Personal history of nicotine dependence; Z79.01 Long term (current) use of anticoagulants; K21.9 Gastro-esophageal reflux disease without esophagitis; E78.5 Hyperlipidemia, unspecified
CPT/HCPCS: 71045; 80053; 82962; 84484; 85025; 93005; 99285; A4216

== ENCOUNTER → 2025-05-04 | Outpatient (CLI) | payer MEDICARE, MEDICAID, SELFPAY ==
--- NOTE | 2025-05-04 12:32 | MRI_ITS ---
PROCEDURE: BRAIN W/WO CONTRAST 05/04/2025 REASON FOR EXAM: EPILEPSY; DEVELOPMENTAL DISABILITY TECHNIQUE: Procedure Code: MRIBRWW Modality: MR Procedure: BRAIN W/WO CONTRAST Multiplanar and multisequence images were obtained. CONTRAST: VOLUME: mL COMPARISON: CT head dated 04/09/2024. FINDINGS: A few of scattered nonspecific FLAIR hyperintense foci are noted within the bilateral cerebral white matter. The bilateral hippocampal gyri are symmetric, without asymmetric atrophy nor abnormal signal. No MR evidence of mesial temporal sclerosis. No visualization of gomez matter migrational disorder. The size and contour of the cerebral gyri appear within normal limits, without appreciable cortical dysplasia. The midline structures are intact, specifically the corpus callosum, septum pellucidum, pituitary gland, and cerebellar vermis. The cervicomedullary junction appears unremarkable. Mild mucosal thickening within a few bilateral ethmoid air cells. Mucous retention cyst within the left maxillary sinus. The bilateral mastoid air cells are clear. MRI/Brain W/WO Contrast IMPRESSION: No MR evidence of mesial temporal sclerosis, gomez matter migrational disorder, or cortical dysplasia. A few nonspecific FLAIR hyperintense foci within the bilateral cerebral white m atter, probably representing very mild chronic microvascular ischemic changes. Similar findings can also be seen in patients experiencing migraine headaches. Mild bilateral ethmoid and left maxillary sinusitis. Reading Location: [id number]
--- NOTE | 2025-05-04 13:00 | RAD_ITS ---
PROCEDURE: CHEST 1 VIEW 05/04/2025 REASON FOR EXAM: MRI CLEARANCE TECHNIQUE: Frontal view of the chest. COMPARISON: November 04, 2024 FINDINGS: Heart size and mediastinal configuration are within normal limits. There is no focal infiltrate or consolidation. There is no pneumothorax or effusion. There is increased gas and stool noted throughout the colon consistent with constipation, similar to the prior. Surgical clips are noted. RAD/Chest 1 View IMPRESSION: No acute process is identified in the chest. Reading Location: [facility]
--- NOTE | 2025-05-04 13:00 | RAD_ITS ---
PROCEDURE: SKULL LESS THAN 4 VIEWS 05/04/2025 REASON FOR EXAM: MRI CLEARANCE TECHNIQUE: Procedure Code: RADSKL Modality: DX Procedure: Single-view lateral skull. COMPARISON: None. RAD/Skull less than 4 Views IMPRESSION: A single lateral view of the skull shows an edentulous patient. Moderate degen erative changes of the visualized cervical spine are seen. Visualized mastoid air cells and paranasal sinuses appear clear. No metallic foreign body is seen. No fracture site is evident. Reading Location: [facility]
--- NOTE | 2025-05-04 13:00 | RAD_ITS ---
PROCEDURE: ABDOMEN SINGLE VIEW 05/04/2025 REASON FOR EXAM: MRI CLEARANCE TECHNIQUE: Procedure Code: RADABD Modality: DX Procedure: ABDOMEN SINGLE VIEW COMPARISON: None FINDINGS: There is gas and stool throughout the colon with an increased stool load consistent with constipation. Surgical clips are noted in the right abdomen. There is no acute bony abnormality. Phleboliths are noted in the pelvis. RAD/Abdomen Single View IMPRESSION: There is gas and stool throughout the colon with an increased stool load consis tent with constipation. S Urgical clips are noted in the right abdomen. Reading Location: [facility]
== END | disposition home or self-care (01) ==
PROVIDERS: Referring Provider Psychiatry & Neurology Neurology; Visit Provider Psychiatry & Neurology Neurology
DX: G40.909 Epilepsy, unspecified, not intractable, without status epilepticus (principal); F89 Unspecified disorder of psychological development; K59.00 Constipation, unspecified
CPT/HCPCS: 70250; 70553; 71045; 74018; A9575

== ENCOUNTER → 2025-05-29 | Outpatient (CLI) | payer MEDICARE, MEDICAID, SELFPAY | END | disposition home or self-care (01) | PROVIDERS: Referring Provider Psychiatry & Neurology Neurology; Visit Provider Psychiatry & Neurology Neurology | DX: G40.909 Epilepsy, unspecified, not intractable, without status epilepticus (principal); F89 Unspecified disorder of psychological development | CPT/HCPCS: 95819 ==